=== PATIENT | male | born 1995 | race Caucasian/White ===

== ENCOUNTER 2016-03-30 10:18 | Emergency (ER) | payer BC ==
[~2016-03-30] VITALS: Ht 182.9 cm; Wt 98.0 kg
[2016-03-30 10:30] VITALS: TEMP 36.8; Ht 182.9 cm; Wt 98.0 kg
--- NOTE | 2016-03-30 12:03 | DIAGNOSTIC IMAGING REPORT ---
THORACIC SPINE 3 VIEWS ROUTINE CLINICAL HISTORY: Thoracic spine and posterior rib pain status post trauma COMPARISON STUDY: No previous studies for comparison. FINDINGS: There is an S-shaped thoracic scoliosis. The paraspinal line is not significantly displaced. No acute fractures are visualized on conventional radiographic imaging. IMPRESSION: Scoliosis. No fractures identified on conventional radiographic imaging Electronically signed by: Daniel Henry M.D. 03/30/2016 12:01 PM Dictated Date/Time: 03/30/2016 12:00 PM
--- NOTE | 2016-03-30 12:04 | DIAGNOSTIC IMAGING REPORT ---
PA CHEST WITH LEFT-SIDED RIB SERIES CLINICAL HISTORY: Fall with left-sided rib pain. FINDINGS: A PA chest radiograph with 4 additional views from a left-sided rib series is compared to study dated 01/18/2014. The cardiomediastinal silhouette is unremarkable. The lungs and pleural spaces are clear. No pneumothorax is seen. There is no radiographic evidence of acute left-sided rib fracture on the rib series. The remainder of the bony thorax is grossly intact. There is mild thoracic scoliosis. IMPRESSION: 1. The lungs are clear. 2. There is no radiographic evidence of left-sided rib fracture as clinically queried. Electronically signed by: Tucker Reaves M.D. 03/30/2016 12:02 PM Dictated Date/Time: 03/30/2016 12:00 PM
[2016-03-30] MEDS ORDERED: KETO10TA PO (12:32)
[2016-03-30 12:41] VITALS: BP 121/79; PULSE 74; O2SAT 97
--- NOTE | 2016-03-31 10:46 | EMERGENCY ROOM VISIT NOTE ---
ED Visit Note First contact with patient: 10:49 Chief Complaint: Back pain. History of Present Illness: Mr. Marino is a 21-year-old white male who ambulates into the ED complaining of left-sided thoracic back pain. Patient reports he was drinking alcohol last night, slipped and fell on the ice onto his back. He reports at the time of the fall he did not strike his head or have loss of consciousness. Since the fall he has had no signs of head injury. Currently he is complaining of a sharp pain over the T8 through T10 area just left lateral to the spine. He describes his pain as a sharp sensation. He rates his discomfort 9/10. The pain is nonradiating. His pain worsens with movement and deep inspiration. He has not identified any alleviating factors related to the pain. He has not taken any medications for pain prior to arrival at the hospital. Additionally he did express concerns about a possible kidney injury; he has reported he is urinating multiple times since the fall and has not seen any blood in his urine and has had no urinary symptoms. Additionally he denies neck pain, chest pain, shortness of breath, lumbar back pain, abdominal pain, nausea, vomiting, upper and lower extremity weakness/ numbness/tingling, bowel and bladder dysfunction, rectal/genital paresthesias. Review of Systems: As noted above in history of present illness. 8 body systems were reviewed and found to be negative as noted above. Past Medical History: Asthma, bronchitis and status post tonsillectomy. Current Medications: Patient denies. Allergies to Medications: Patient denies. Social History: Patient is currently employed; he feels safe in his home environment; he denies tobacco use; he admits to alcohol use. Physical Examination: Vital Signs: Date Time Temp Pulse Resp B/P Pulse Ox O2 Delivery O2 Flow Rate FiO2 03/30/16 12:41 74 18 121/79 97 03/30/16 12:14 74 18 121/79 97 Room Air 03/30/16 10:30 36.8 93 18 126/67 98 Room Air GENERAL: 21-year-old male in mild to moderate distress due to pain, nontoxic- appearing, afebrile and hemodynamically stable. NEUROLOGICAL: Awake, alert and oriented to person, place and time. Answering questions appropriately and following commands. Normal gait. Good hand eye coordination. No focal motor sensory deficits. SKIN: Warm, dry and pink. No soft tissue eruptions or trauma noted. HEENT: Atraumatic and normocephalic. BACK: No tenderness over the bony cervical and lumbar spines. Mild tenderness over the T8 through T10 area just left lateral to the spine. No palpable bony deformities or crepitus. Mild swelling. There is also tenderness in the paraspinous musculature of the lateral spine and over the lower posterior ribs without bony deformity or crepitus. I do not appreciate any muscle spasm. Negative straight leg raise test. No CVA tenderness. THORAX: Lungs sounds are clear to auscultation and equal bilaterally with symmetrical chest wall. No wheezing, rales or rhonchi. No subcutaneous air. Mild tenderness over the left posterior and lateral aspect of the lower ribs with no gross bony deformity, bony crepitus, swelling or ecchymosis. LEFT UPPER EXTREMITY: No gross bony deformity. Full range of motion of the shoulder and elbow. Distal neurovascular statuses are intact. 5/5 muscle strength in flexion, extension, abduction and abduction of the shoulders, flexion and extension of the elbows and pronation and supination the forearms. ED Course: Patient is assessed as noted above. Thoracic Spine X-Rays: Was read by myself and the radiologist showing no acute fractures or subluxations. Scoliosis was noted. PA Chest and Left Rib X-Rays: Was read by myself and the radiologist showing no acute infiltrates, effusions or pneumothorax. Normal heart silhouette. No rib fractures were noted. Patient was educated about tonight's findings and instructed on his treatment plan; he verbalizes understanding and agreement with this plan. Clinical Impression: Thoracic back pain. Left sided rib pain. Disposition: Patient discharged home in stable condition; prior to departure he was reassessed and subjectively reported he was pain-free. Plan: Comfort measures were discussed with the patient including alternating Toradol acetaminophen every 3 hours as needed for pain, ice and rest. Patient was encouraged to follow-up at [facility] for recheck in 2-3 days if no better. Patient was encouraged return the ED for worsening pain, shortness of breath, bloody urine or any new/concerning symptoms.
== END 2016-03-30 12:43 | disposition home or self-care (01) ==
LOC: C.EDB 10:19 → C.EDD 12:43
DX: M54.6 Pain in thoracic spine (principal); R07.81 Pleurodynia; W01.0XXA Fall on same level from slipping, tripping and stumbling without subsequent striking against object, initial encounter; J45.909 Unspecified asthma, uncomplicated